=== PATIENT | male | born 2005 | race African-American/Black ===

== ENCOUNTER 2025-08-10 13:32 | Emergency (ER) | payer OTHER, SELFPAY ==
--- NOTE | 2025-08-10 13:34 | ED.SKABFB ---
HPI - Skin/Abscess/Foreign Bdy General Chief complaint: Skin/Abscess/Foreign Body Stated complaint: RASH ON FEET Time Seen by Provider: 08/10/25 13:34 Source: patient Mode of arrival: ambulatory Limitations: no limitations History of Present Illness HPI narrative: Jorge Alberto is a 20-year-old male patient presenting to the clinic today with complaints of a itchy rash on bilateral feet x1 week. History of eczema. Denies any changes in soaps, shampoos, or detergents. Denies any fevers, chills, body aches. Related Data Allergies Allergy/AdvReac Type Severity Reaction Status Date / Time No Known Allergies Allergy Verified 08/10/25 13:48 Review of Systems Review of Systems: Pertinent positives per HPI. Patient denies any fever, chills, headache, visual changes, dizziness, cough, runny nose, sore throat, shortness of breath, chest pain, palpitations, nausea, vomiting, diarrhea, constipation, abdominal pain, or any urinary issues. PMFSH Comments At the time of my signature, I reviewed and agree with the nursing past medical, surgical, social, and family history. There is no relevant family history pertinent to the patient complaint. Exam Narrative: General: Well-developed, well nourished, in no apparent distress Head: Normocephalic, atraumatic. Cardio: Regular rate and rhythm, s1 and s2 normal, no murmur appreciated. Resp: Clear to auscultation bilaterally, no rhonchi, rales, wheezing or rubs. Integumentary: [employer], warm, and dry, red, raised, itchy, scaly rash to the dorsal bilateral feet consistent with eczema Course Course Emergency Course: Portions of this record may have been created with voice recognition software. Level of Care: Express Care Visit Vital Signs Vital signs: Vital signs reviewed MDM - Skin/Abscess/Foreign Bdy MDM Narrative Medical decision making narrative: At the time of visit patient is resting comfortably on the exam table. Patient appears to be nontoxic. Complaints of a itchy rash on bilateral feet x1 week. History of eczema. Denies any changes in soaps, shampoos, or detergents. Denies any fevers, chills, body aches. Red, raised, itchy, scaly rash to bilateral dorsal feet. Plan: I suspect patient has eczema flare on his feet. Prescription for triamcinolone cream was sent to the pharmacy. Supportive measures were discussed with the patient and they voiced understanding discharge instructions and agrees to treatment plan. Return precautions reviewed Discharge Plan Discharge Clinical Impression: Eczema Qualifiers: Eczema type: unspecified Qualified Code(s): L30.9 - Dermatitis, unspecified Patient Disposition: Home Condition: Stable Instructions: Antibiotic Form, Eczema (ED) Additional Instructions: Apply triamcinolone cream as directed Avoid hot showers Recommend moisturize skin using Aquaphor, Lubriderm, or Cetaphil lotion. Avoid scratching as this can cause a secondary infection May take Benadryl 25-50mg every 6 hours as needed for itching. Follow up with your PCP in 3-5 days if symptoms persist or sooner if they worsen Go to the Emergency Room if symptoms worsen- fever, rash spreading with treatment, shortness of breath, tongue swelling, drooling, or chest pain Patient Language: Ken[place] Prescriptions: New triamcinolone acetonide 0.1 % cream 1 applic topical BID 7 Days Qty: 30 0RF Follow-up/Referrals: UNKNOWN,DOCTOR [Non-Staff] Time of Disposition: 13:48 Quality NIHSS Nursing Documentation ED NIHSS nursing documentation: reviewed/agree
[2025-08-10 13:46] VITALS: BP 145/88; PULSE 73; RESP 16; TEMP 36.4; O2SAT 100
== END 2025-08-10 13:51 | disposition home or self-care (01) ==
PROVIDERS: Emergency Provider Nurse Practitioner Family
DX: L30.9 Dermatitis, unspecified (principal)
CPT/HCPCS: 99203; G0463